=== PATIENT | male | born 1990 | race American Indian/Alaskan Native ===

== ENCOUNTER 2020-04-25 03:50 | Emergency (ER) | payer SELFPAY ==
[2020-04-25 03:57] VITALS: BP 142/81
--- NOTE | 2020-04-25 04:00 | Event Note ---
ED Screening Note ED Screening Note: generalized abd pain 5 days ago normal BM today feels constipated but still having BM no distension +n/v no fever pmhx none abdominal surgical hx of left inguinal hernia repair no allergies to meds This initial assessment/diagnostic orders/clinical plan/treatment(s) is/are subject to change based on patients health status, clinical progression and re- assessment by fellow clinical providers in the ED. Further treatment and workup at subsequent clinical providers discretion. Patient/guardian urged not to elope from the ED as their condition may be serious if not clinically assessed and managed. Initial orders include: labs, XR
--- NOTE | 2020-04-25 04:53 | XRay Report ---
XR abdomen 2V INDICATION / CLINICAL INFORMATION: abd pain. COMPARISON: None available. FINDINGS: TUBES / LINES: None. BOWEL GAS PATTERN: Nonobstructive bowel gas pattern. FREE AIR / EXTRALUMINAL GAS: None seen. ADDITIONAL FINDINGS: No significant additional findings. IMPRESSION: 1. No significant abnormality. Signer Name: Mak Miller MD Signed: 04/25/2020 4:48 AM Workstation Name: [id number]
[2020-04-25 05:11] LABS: Basophils # (Auto) 0.1 K/mm3 (0.0-0.1); Basophils % (Auto) 1.2 % (0.0-1.8); Eosinophils # (Auto) 0.4 K/mm3 (0.0-0.4); Eosinophils % (Auto) 5.4 % (0.0-4.3); Hematocrit 42.8 % (35.5-45.6); Hemoglobin 14.5 gm/dl (11.8-15.2); Lymphocytes # (Auto) 1.8 K/mm3 (1.2-5.4); Lymphocytes % (Auto) 21.9 % (13.4-35.0); Mean Corpuscular HGB Conc 34 % (32-34); Mean Corpuscular Volume 92 fl (84-94); Monocytes # (Auto) 0.5 K/mm3 (0.0-0.8); Monocytes % (Auto) 6.6 % (0.0-7.3); Platelet Count 282 K/mm3 (140-440); Red Blood Count 4.68 M/mm3 (3.65-5.03); Red Cell Distribution Width 13.4 % (13.2-15.2)
[2020-04-25 05:22] LABS: Alanine Aminotransferase 24 units/L (7-56); Albumin 4.5 g/dL (3.9-5); BUN/Creatinine Ratio 9; Blood Urea Nitrogen 8 mg/dL (9-20); Calcium 9.2 mg/dL (8.4-10.2); Hemolysis Index 15
[2020-04-25] MEDS ORDERED: fentaNYL 100 MCG/2 ML INJ IV ONE (05:33)
[2020-04-25] MEDS ORDERED: SODIUM CHLORIDE 0.9% 1000 ML 1,000 ML IV ONE (05:33)
[2020-04-25] MEDS ORDERED: ONDANSETRON 4 MG/2 ML INJ IV ONE (05:33)
[2020-04-25] MEDS ORDERED: FAMOTIDINE 20 MG/2 ML INJ IV ONE (05:33)
--- NOTE | 2020-04-25 06:25 | Cat Scan Report ---
CT abdomen pelvis w con INDICATION: Pt states abd pain with N/V x 5 days, Hx of LT Inguinal Hernia Repair at age 10.. COMPARISON: 01/16/2014 TECHNIQUE: Abdominal and pelvic CT exam performed. All CT scans at this location are performed using CT dose reduction for ALARA by means of automated exposure control. FINDINGS: CT ABDOMEN and PELVIS: Lung Bases: No significant abnormality. Liver: Numerous tiny hypoattenuating hepatic lesions most throughout both hepatic lobes which have in creased compared to prior examination. Biliary: No significant abnormality. Spleen: No significant abnormality. Pancreas: No significant abnormality. Adrenals: No significant abnormality. Kidneys: Bilateral small renal cysts are present which are similar to prior. Lymphatics: No lymphadenopathy. Vasculature: No significant abnormality. Bowel: There is circumferential descending and transverse bowel wall thickening. Mild surrounding str anding and dilation the feeding arterioles. Small quantity of fluid is seen layering in the pelvis wh ich is secondary to colitis. Normal appendix. Pelvis: No significant abnormality. Osseous Structures: No aggressive osseous lesion. Additional Findings: None IMPRESSION: 1. There is a long segment of colitis involving the descending and transverse colon. This could be in fectious and/or inflammatory in etiology. 2. Innumerable tiny hypoattenuating cystic lesions are seen throughout the liver which have increased compared to prior examination. 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 Given the presence of renal cysts, this is known to be associated with polycystic kidney dis ease. Correlate clinically. Signer Name: Mak Miller MD Signed: 04/25/2020 6:21 AM Workstation Name: [id number]
--- NOTE | 2020-04-25 06:35 | Emergency Department Report ---
ED Abdominal Pain HPI - General Chief Complaint: Abdominal Pain Stated Complaint: EMESIS Time Seen by Provider: 04/25/20 03:58 Source: patient Mode of arrival: Ambulatory Limitations: No Limitations - History of Present Illness Initial Comments: This is a 30-year-old man that states he has no prior medical history. He states that he has been having lower abdominal discomfort since which is intermittent. It has been associated with diarrhea once or twice a day and occasional streak of blood. He denies vomiting. He states he cannot tolerate p.o. He denies fever or chills. Prior to my arrival the patient has had screening labs as well as a CT of the abdomen and pelvis. The CT was consistent with colitis a suspicion of polycystic kidney/liver disease. Patient states that he is able to go home now. He declines IV fluid. He would like to take antibiotics by mouth. He is not complaining of any significant abdominal pain. MD Complaint: abdominal pain -: days(s) Location: LLQ, RLQ Radiation: none Migration to: no migration Severity: mild, moderate Quality: cramping Consistency: intermittent Improves With: nothing Worsens With: nothing Associated Symptoms: nausea. denies: vomiting (No recent) - Related Data Previous Rx's Medication Instructions Recorded Last Taken Type HYDROcodone/APAP 7.5-325 [[place] 1 each PO Q6HR PRN #14 tablet 01/16/14 Unknown Rx 7.5/325 mg] Acetaminophen/Codeine [Tylenol 1 tab PO Q6H PRN #8 tab 01/05/20 Unknown Rx /Codeine # 3 tab] Clindamycin [Clindamycin CAP] 300 mg PO Q6H 10 Days #40 capsule 01/05/20 Unknown Rx Ibuprofen [Motrin 800 MG tab] 800 mg PO Q8HR PRN #21 tablet 01/05/20 Unknown Rx Allergies Allergy/AdvReac Type Severity Reaction Status Date / Time No Known Allergies Allergy Unverified 01/16/14 02:39 ED Review of Systems ROS: Stated complaint: EMESIS Other details as noted in HPI Constitutional: denies: chills, fever Eyes: denies: eye pain, vision change ENT: denies: ear pain, throat pain Respiratory: denies: cough, shortness of breath, wheezing Cardiovascular: denies: chest pain, palpitations Endocrine: no symptoms reported Gastrointestinal: as per HPI, abdominal pain, nausea, diarrhea. denies: vomiting Genitourinary: denies: urgency, dysuria Musculoskeletal: denies: back pain, joint swelling, arthralgia Skin: denies: rash, lesions Neurological: denies: headache, weakness, paresthesias Psychiatric: denies: anxiety, depression Hematological/Lymphatic: denies: easy bleeding, easy bruising ED Past Medical Hx - Past Medical History Previous Medical History?: No - Surgical History Past Surgical History?: Yes Additional Surgical History: HERNIA REPAIR - Social History Smoking Status: Current Every Day Smoker Substance Use Type: Alcohol, Marijuana - Medications Home Medications: Home Medications Medication Instructions Recorded Confirmed Last Taken Type HYDROcodone/APAP 7.5-325 [[place] 1 each PO Q6HR PRN #14 tablet 01/16/14 Unknown Rx 7.5/325 mg] Acetaminophen/Codeine [Tylenol 1 tab PO Q6H PRN #8 tab 01/05/20 Unknown Rx /Codeine # 3 tab] Clindamycin [Clindamycin CAP] 300 mg PO Q6H 10 Days #40 capsule 01/05/20 Unknown Rx Ibuprofen [Motrin 800 MG tab] 800 mg PO Q8HR PRN #21 tablet 01/05/20 Unknown Rx ED Physical Exam - General Limitations: No Limitations, Other (Nontoxic and adequately hydrated appearance) General appearance: alert, in no apparent distress - Head Head exam: Present: atraumatic, normocephalic - Eye Eye exam: Present: normal appearance. Absent: scleral icterus - ENT ENT exam: Present: mucous membranes moist - Neck Neck exam: Present: normal inspection. Absent: meningismus - Respiratory Respiratory exam: Present: normal lung sounds bilaterally. Absent: respiratory distress - Cardiovascular Cardiovascular Exam: Present: regular rate, normal rhythm. Absent: systolic murmur, diastolic murmur, rubs, gallop - GI/Abdominal GI/Abdominal exam: Present: soft, normal bowel sounds. Absent: distended, tenderness, guarding, rebound, rigid - Rectal Rectal exam: Present: deferred - Extremities Exam Extremities exam: Present: normal inspection - Back Exam Back exam: Present: normal inspection - Neurological Exam Neurological exam: Present: alert, oriented X3, CN II-XII intact. Absent: motor sensory deficit - Psychiatric Psychiatric exam: Present: normal affect, normal mood - Skin Skin exam: Present: warm, dry, intact, normal color. Absent: rash ED Course Vital Signs 04/25/20 03:53 Temperature 97.9 F Pulse Rate 84 Respiratory 16 Rate Blood Pressure 142/81 O2 Sat by Pulse 99 Oximetry - Reevaluation(s) Reevaluation #1: Declining IV fluids, the patient will be treated with oral antibiotics analgesia and referred for outpatient follow-up. 04/25/20 06:55 ED Medical Decision Making - Lab Data Result diagrams: 04/25/20 04:32 04/25/20 04:32 Laboratory Results - last 24 hr 04/25/20 04/25/20 04:32 04:32 WBC 8.3 RBC 4.68 Hgb 14.5 Hct 42.8 MCV 92 MCH 31 MCHC 34 RDW 13.4 Plt Count 282 Lymph % (Auto) 21.9 Porter % (Auto) 6.6 Eos % (Auto) 5.4 H Baso % (Auto) 1.2 Lymph # (Auto) 1.8 Porter # (Auto) 0.5 Eos # (Auto) 0.4 Baso # (Auto) 0.1 Seg Neutrophils % 64.9 Seg Neutrophils # 5.4 Sodium 136 L Potassium 3.8 Chloride 101.6 Carbon Dioxide 29 Anion Gap 9 BUN 8 L Creatinine 0.9 Estimated GFR > 60 BUN/Creatinine Ratio 9 Glucose 101 H Calcium 9.2 Total Bilirubin 0.60 AST 21 ALT 24 Alkaline Phosphatase 45 Total Protein 7.2 Albumin 4.5 Albumin/Globulin Ratio 1.7 Lipase 48 Critical care attestation.: If time is entered above; I have spent that time in minutes in the direct care of this critically ill patient, excluding procedure time. ED Disposition Clinical Impression: Acute colitis, Polycystic kidney Disposition: TO HOME OR SELFCARE Is pt being admited?: No Does the pt Need Aspirin: No Condition: Stable Instructions: Colitis Referrals: SEVERINO MEZA MD [Primary Care Provider] - 3-5 Days
[2020-04-25] MEDS ORDERED: levoFLOXacin 500 MG TAB PO ONE (06:58)
[2020-04-25] MEDS ORDERED: traMADol 50 MG TAB PO ONE (06:58)
== END 2020-04-25 07:00 | disposition home or self-care (01) ==
LOC: ED 03:50
DX: K52.9 Noninfective gastroenteritis and colitis, unspecified (principal); Q61.3 Polycystic kidney, unspecified; F17.200 Nicotine dependence, unspecified, uncomplicated; F12.90 Cannabis use, unspecified, uncomplicated; Z79.899 Other long term (current) drug therapy; Z98.890 Other specified postprocedural states
CPT/HCPCS: 36415; 74019; 74177; 80053; 83690; 85025; 99284; Q9967